=== PATIENT | female | born 1985 ===

== ENCOUNTER 2018-03-10 15:29 | Emergency (ER) | payer BC ==
[2018-03-10 15:42] VITALS: O2SAT 100
[2018-03-10] MEDS ORDERED: Morphine 4 MG/ML VIAL ONE (16:49)
[2018-03-10 16:57] LABS: BASO % 0.3 % (0.0-2.0); EOS # 0.2 K/uL (0.0-0.7); EOS % 1.7 % (0.0-4.0); HEMOGLOBIN 12.6 g/dL (12.0-16.0); LYMPH # 3.3 K/uL (1.0-4.3); LYMPH % 32.4 % (20.0-40.0); MEAN CELL VOLUME 87.7 fl (81.0-99.0); MEAN CORPUSCULAR HEMOGLOBIN 29.1 pg (27.0-31.0); MEAN CORPUSCULAR HGB CONC 33.1 g/dL (33.0-37.0); MEAN PLATELET VOLUME 10.3 fl (7.2-11.7); MONO # 0.9 K/uL (0.0-0.8); MONO % 8.6 % (0.0-10.0); NEUT # 5.8 K/uL (1.8-7.0); RBC 4.34 Mil/uL (3.80-5.20); RED CELL DISTRIBUTION WIDTH 14.7 % (11.5-14.5); WHITE BLOOD COUNT 10.2 K/uL (4.8-10.8)
[2018-03-10 17:04] LABS: CALCIUM 8.9 mg/dL (8.4-10.2); GFR AFRICAN-AMERICAN > 60; GFR NON-AFRICAN AMERICAN > 60; LIPASE 122 U/L (23-300)
--- NOTE | 2018-03-10 17:06 | RAD ---
PROCEDURE: CHEST RADIOGRAPH, 1 VIEW HISTORY: sob COMPARISON: Chest radiographs 11/24/2015. FINDINGS: LUNGS: Clear. PLEURA: No pneumothorax or pleural fluid seen. CARDIOVASCULAR: Cardiomegaly not completely excluded. OSSEOUS STRUCTURES: No significant abnormalities. VISUALIZED UPPER ABDOMEN: Normal. OTHER FINDINGS: None. IMPRESSION: No acute fracture or destructive bony lesion identified. Stable cardiac silhouette. No pulmonary vascular congestion.
[2018-03-10 17:10] LABS: ALBUMIN 3.8 g/dL (3.5-5.0); ALT/SGPT 42 U/L (9-52); AST/SGOT 71 U/L (14-36); BLOOD UREA NITROGEN 11 mg/dl (7-17)
[2018-03-10] MEDS ORDERED: Iohexol 300 100 ML IJ ONE (17:22)
[2018-03-10] MEDS ORDERED: Sodium Chloride 0.9% 50 ML IV ONE (17:22)
--- NOTE | 2018-03-10 17:43 | ED PDOC ---
HPI: Abdomen Time Seen by Provider: 03/10/18 15:53 Chief Complaint (Nursing): Abdominal Pain Chief Complaint (Provider): Abdominal Pain History Per: Patient History/Exam Limitations: no limitations Onset/Duration Of Symptoms: Hrs (x1 prior to arrival) Current Symptoms Are (Timing): Still Present Additional Complaint(s): 32 year old female presents to the ED for evaluation of constant epigastric and back pain that began suddenly one hour prior to arrival. She reports that she has to hold her breath secondary to the severity of the pain. Otherwise, she denies chest pain, vomiting, diarrhea, and urinary symptoms. LNMP: currently PMD: [facility] Past Medical History Reviewed: Historical Data, Nursing Documentation, Vital Signs Vital Signs: Last Vital Signs Temp 98.8 F 03/10/18 19:29 Pulse 73 03/10/18 19:46 Resp 18 03/10/18 19:46 BP 108/68 03/10/18 19:46 Pulse Ox 100 03/10/18 19:46 - Medical History PMH: Gastritis - Surgical History Other surgeries: lap band - Family History Family History: States: Unknown Family Hx - Social History Current smoker - smoking cessation education provided: No Alcohol: None Drugs: Denies - Home Medications Home Medications: Ambulatory Orders Medication Instructions Recorded Famotidine [Pepcid] 20 mg PO DAILY PRN #30 tab 11/24/15 Famotidine [Pepcid] 20 mg PO DAILY #10 tab 03/10/18 Ibuprofen [Motrin Tab] 600 mg PO Q6 PRN #15 tab 03/10/18 - Allergies Allergies/Adverse Reactions: Allergies Allergy/AdvReac Type Severity Reaction Status Date / Time morphine Allergy RASH Verified 03/10/18 17:04 Review of Systems ROS Statement: Except As Marked, All Systems Reviewed And Found Negative Cardiovascular: Negative for: Chest Pain Respiratory: Positive for: Other (holding breath secondary pain) Gastrointestinal: Positive for: Abdominal Pain (epigastric). Negative for: Vomiting, Diarrhea Genitourinary Female: Negative for: Dysuria, Frequency Musculoskeletal: Positive for: Back Pain Physical Exam - Reviewed Nursing Documentation Reviewed: Yes Vital Signs Reviewed: Yes - Physical Exam Appears: Positive for: Uncomfortable Head Exam: Positive for: ATRAUMATIC, NORMOCEPHALIC Skin: Positive for: Normal Color, Warm, Dry Eye Exam: Positive for: Normal appearance, EOMI, PERRL ENT: Positive for: Normal ENT Inspection Neck: Positive for: Normal, Painless ROM, Supple Cardiovascular/Chest: Positive for: Regular Rate, Rhythm. Negative for: Murmur Respiratory: Positive for: Normal Breath Sounds. Negative for: Accessory Muscle Use, Respiratory Distress Gastrointestinal/Abdominal: Positive for: Soft, Tenderness (to epigastric area; negative RUQ tenderness; negative Manzano's sign) Back: Positive for: Normal Inspection. Negative for: L CVA Tenderness, R CVA Tenderness, Vertebral Tenderness Extremity: Positive for: Normal ROM. Negative for: Tenderness, Swelling Neurologic/Psych: Positive for: Alert, Oriented (x3). Negative for: Motor/ Sensory Deficits - Laboratory Results Result Diagrams: 03/10/18 16:47 03/10/18 16:47 - ECG O2 Sat by Pulse Oximetry: 100 (RA) Pulse Ox Interpretation: Normal Medical Decision Making Medical Decision Making: Initial Impression: epigastric and back pain Ddx: gastritis, pancreatitis, small bowel obstruction, less likely biliary disease or nephrolithiasis, r/o acs Time: 16:31 Initial Plan: --Blood culture --Toradol 30mg IVP --Morphine 4mg IVP --CXR --CMP --Lipase --Trop I --CBC with differential --EKG --CT Abd / Pelvis IV contrast --US Gallbladder and Common Duct Scribe Attestation: Documented by Ela Turner, acting as a scribe for Jose yLnn MD. Provider Scribe Attestation: All medical entries made by the Scribe were at my direction and personally dictated by me. I have reviewed the chart and agree that the record accurately reflects my personal performance of the history, physical exam, medical decision making, and the department course for this patient. I have also personally directed, reviewed, and agree with the discharge instructions and disposition. Disposition - Clinical Impression Clinical Impression: Gallstones, Abdominal pain - Patient ED Disposition Is Patient to be Admitted: Transfer of Care - Disposition Referrals: Sandhya Shirley MD [Staff Provider] - Disposition: Routine/Home Disposition Time: 17:00 Condition: STABLE Additional Instructions: Return to ER for any worse or new symptoms. Recommend low fat diet and followup with surgeon for definitive care, you may need your gallbladder removed. Delay in scheduling procedure could have complications to your liver, pancreas and other abdominal organs. Prescriptions: Famotidine [Pepcid] 20 mg PO DAILY #10 tab Ibuprofen [Motrin Tab] 600 mg PO Q6 PRN #15 tab PRN Reason: Pain, Moderate (4-7) Instructions: Acute Abdomen (Belly Pain), Gallstones (DC) Patient Signed Over To: Jimbo Francois III
--- NOTE | 2018-03-10 18:10 | ED PDOC ---
- Laboratory Results Result Diagrams: 03/10/18 16:47 03/10/18 16:47 - ECG O2 Sat by Pulse Oximetry: 100 (RA) - Progress Re-evaluation Time: 17:05 Condition: Improved (no pain) Medical Decision Making Medical Decision Makin:00 Patient care endorsed from Dr. Lynn to Dr. Francois pending workup and imaging. 17:04 CXR FINDINGS: LUNGS: Clear. PLEURA: No pneumothorax or pleural fluid seen. CARDIOVASCULAR: Cardiomegaly not completely excluded. OSSEOUS STRUCTURES: No significant abnormalities. VISUALIZED UPPER ABDOMEN: Normal. OTHER FINDINGS: None. IMPRESSION: No acute fracture or destructive bony lesion identified. Stable cardiac silhouette. No pulmonary vascular congestion. Accession No. : [id number] Patient Name / ID : MARYJO DIXON / [id number] Exam Date : 03/10/2018 18:04:43 ( Approved ) Study Comment : Sex / Age : F / 32Y Creator : John Camarillo MD Dictator : John Camarillo MD Obstetrical Tech : Aircraft Engine Mechanic Supervisor : John Camarillo MD Approver2 : Report Date : 03/10/2018 18:54:09 My Comment : HISTORY: RUQ pain hx gastric sleeve COMPARISON: None. TECHNIQUE: Sonographic evaluation of the right upper quadrant of the abdomen. FINDINGS: LIVER: Measures 14.9 cm in length. Normal echogenicity of the liver parenchyma. No mass. No intrahepatic bile duct dilatation. GALLBLADDER: Cholelithiasis identified within the gallbladder which is mildly distended but there is no pericholecystic fluid collection or biliary tree dilatation identified. The gallbladder wall does not appear simply thickened and further clinical correlation is advised for potential cholecystitis. COMMON BILE DUCT: Measures 4.1 mm. No stones. No dilatation. PANCREAS: The pancreas is not identified due to extensive overlying bowel gas. RIGHT KIDNEY: Measures 10.4 cm in length. Normal echogenicity. No calculus, mass, or hydronephrosis. AORTA: No aneurysmal dilatation. IVC: Unremarkable. OTHER FINDINGS: None . IMPRESSION: A mildly distended gallbladder is appreciate with cholelithiasis but is otherwise unremarkable appearing. No biliary tree dilatation. Clinically correlate further. Nonvisualization of the pancreas due to extensive overlying bowel gas. Remainder of the examination appears unremarkable. Accession No. : [id number] Patient Name / ID : MARYJO DIXON / [id number] Exam Date : 03/10/2018 18:39:24 ( Approved ) Study Comment : Sex / Age : F / 32Y Creator : John Camarillo MD Dictator : John Camarillo MD Obstetrical Tech : Aircraft Engine Mechanic Supervisor : John Camarillo MD Approver2 : Report Date : 03/10/2018 19:04:49 My Comment : PROCEDURE: CT Abdomen and Pelvis with contrast HISTORY: epigastric pain back pain COMPARISON: None. TECHNIQUE: Contrast dose: Omnipaque 300, 95 cc Radiation dose: Total exam DLP = 732.60 mGy-cm. This CT exam was performed using one or more of the following dose reduction techniques: Automated exposure control, adjustment of the mA and/or kV according to patient size, and/or use of iterative reconstruction technique. FINDINGS: LOWER THORAX: 3 mm subpleural solid nodule seen in right lower lobe in image 4 series 5. 5 mm curvilinear solid scar or nodule is questioned overlying the right hemidiaphragm in image 9. With lung bases otherwise clear. LIVER: Unremarkable. No gross lesion or ductal dilatation. GALLBLADDER AND BILE DUCTS: Gallbladder appears distended and is otherwise unremarkable. PANCREAS: Unremarkable. No gross lesion or ductal dilatation. SPLEEN: Unremarkable. ADRENALS: Unremarkable. No mass. KIDNEYS AND URETERS: Right kidney appears unremarkable. Tiny lucency seen at the lower pole left kidney likely reflecting a tiny cyst though this is too small to characterize. Left kidney is otherwise unremarkable. VASCULATURE: Unremarkable. No aortic aneurysm. BOWEL: Postop changes seen related to the stomach suggestive of possible gastric sleeve surgery. . No obstruction. No gross mural thickening. APPENDIX: Normal appendix. PERITONEUM: Unremarkable. No free fluid. No free air. LYMPH NODES: Unremarkable. No enlarged lymph nodes. BLADDER: Unremarkable. REPRODUCTIVE: Unremarkable. BONES: No acute fracture. OTHER FINDINGS: None. IMPRESSION: 1. No radiodense urolithiasis obstructive uropathy or perinephric reaction appreciated bilaterally. 2. A distended but otherwise unremarkable gallbladder is identified. 3. Tiny lucency too small to characterize in the lower pole left kidney, statistically likely to be a cyst. 4. No bowel obstruction, measure edema, ascites or free intrarenal gas. 5. Prior gastric sleeve surgery suggested. 6. 2 small nodular foci are seen at the lower lobe right lung. Follow-up CT can be performed in a year to demonstrate stability of these findings. Results d/w patient including gallstones. Refer to outpatient surgery given improvement in ED, lack of elev WBC and LFTs clinically unremarkable other than mild elev transaminase Scribe Attestation: Documented by Ela Turner, acting as a scribe for Jimbo Francois III, DO. Provider Scribe Attestation: All medical entries made by the Scribe were at my direction and personally dictated by me. I have reviewed the chart and agree that the record accurately reflects my personal performance of the history, physical exam, medical decision making, and the department course for this patient. I have also personally directed, reviewed, and agree with the discharge instructions and disposition. Disposition Counseled Patient/Family Regarding: Studies Performed, Diagnosis, Need For Followup - Clinical Impression Clinical Impression: Gallstones, Abdominal pain - POA Present On Arrival: None - Disposition Referrals: Sandhya Shirley MD [Staff Provider] - Disposition: Routine/Home Disposition Time: 19:08 Additional Instructions: Return to ER for any worse or new symptoms. Recommend low fat diet and followup with surgeon for definitive care, you may need your gallbladder removed. Delay in scheduling procedure could have complications to your liver, pancreas and other abdominal organs. Prescriptions: Famotidine [Pepcid] 20 mg PO DAILY #10 tab Ibuprofen [Motrin Tab] 600 mg PO Q6 PRN #15 tab PRN Reason: Pain, Moderate (4-7) Instructions: Acute Abdomen (Belly Pain), Gallstones (DC) Forms: [employer] ([place])
--- NOTE | 2018-03-10 18:55 | US ---
HISTORY: RUQ pain hx gastric sleeve COMPARISON: None. TECHNIQUE: Sonographic evaluation of the right upper quadrant of the abdomen. FINDINGS: LIVER: Measures 14.9 cm in length. Normal echogenicity of the liver parenchyma. No mass. No intrahepatic bile duct dilatation. GALLBLADDER: Cholelithiasis identified within the gallbladder which is mildly distended but there is no pericholecystic fluid collection or biliary tree dilatation identified. The gallbladder wall does not appear simply thickened and further clinical correlation is advised for potential cholecystitis. COMMON BILE DUCT: Measures 4.1 mm. No stones. No dilatation. PANCREAS: The pancreas is not identified due to extensive overlying bowel gas. RIGHT KIDNEY: Measures 10.4 cm in length. Normal echogenicity. No calculus, mass, or hydronephrosis. AORTA: No aneurysmal dilatation. IVC: Unremarkable. OTHER FINDINGS: None . IMPRESSION: A mildly distended gallbladder is appreciate with cholelithiasis but is otherwise unremarkable appearing. No biliary tree dilatation. Clinically correlate further. Nonvisualization of the pancreas due to extensive overlying bowel gas. Remainder of the examination appears unremarkable.
--- NOTE | 2018-03-10 19:06 | CT ---
PROCEDURE: CT Abdomen and Pelvis with contrast HISTORY: epigastric pain back pain COMPARISON: None. TECHNIQUE: Contrast dose: Omnipaque 300, 95 cc Radiation dose: Total exam DLP = 732.60 mGy-cm. This CT exam was performed using one or more of the following dose reduction techniques: Automated exposure control, adjustment of the mA and/or kV according to patient size, and/or use of iterative reconstruction technique. FINDINGS: LOWER THORAX: 3 mm subpleural solid nodule seen in right lower lobe in image 4 series 5. 5 mm curvilinear solid scar or nodule is questioned overlying the right hemidiaphragm in image 9. With lung bases otherwise clear. LIVER: Unremarkable. No gross lesion or ductal dilatation. GALLBLADDER AND BILE DUCTS: Gallbladder appears distended and is otherwise unremarkable. PANCREAS: Unremarkable. No gross lesion or ductal dilatation. SPLEEN: Unremarkable. ADRENALS: Unremarkable. No mass. KIDNEYS AND URETERS: Right kidney appears unremarkable. Tiny lucency seen at the lower pole left kidney likely reflecting a tiny cyst though this is too small to characterize. Left kidney is otherwise unremarkable. VASCULATURE: Unremarkable. No aortic aneurysm. BOWEL: Postop changes seen related to the stomach suggestive of possible gastric sleeve surgery. . No obstruction. No gross mural thickening. APPENDIX: Normal appendix. PERITONEUM: Unremarkable. No free fluid. No free air. LYMPH NODES: Unremarkable. No enlarged lymph nodes. BLADDER: Unremarkable. REPRODUCTIVE: Unremarkable. BONES: No acute fracture. OTHER FINDINGS: None. IMPRESSION: 1. No radiodense urolithiasis obstructive uropathy or perinephric reaction appreciated bilaterally. 2. A distended but otherwise unremarkable gallbladder is identified. 3. Tiny lucency too small to characterize in the lower pole left kidney, statistically likely to be a cyst. 4. No bowel obstruction, measure edema, ascites or free intrarenal gas. 5. Prior gastric sleeve surgery suggested. 6. 2 small nodular foci are seen at the lower lobe right lung. Follow-up CT can be performed in a year to demonstrate stability of these findings.
[2018-03-10 19:30] VITALS: TEMP 98.8
[2018-03-10 19:47] VITALS: BP 108/68; PULSE 73; RESP 18
--- NOTE | 2018-03-11 08:06 | CARD ---
APPROVED REPORT EKG Measurement Heart [id number] <Conclusion> Normal sinus rhythm with sinus arrhythmia Moderate voltage criteria for LVH, may be normal variant Nonspecific T wave abnormality Abnormal ECG
== END 2018-03-10 19:47 | disposition home or self-care (01) ==
LOC: H.ER 15:29
DX: K80.20 Calculus of gallbladder without cholecystitis without obstruction (principal)
CPT/HCPCS: 71045; 74177; 76705; 80053; 81025; 83690; 84484; 85025; 93005; 96374; 99284; J1885; Q9967